=== PATIENT | male | born 1935 | race Caucasian/White ===

== ENCOUNTER → 2018-10-07 | Outpatient (CLI) | payer OTHER | END | disposition home or self-care (01) | LOC: NUCLEAR 13:46 | DX: I82.409 Acute embolism and thrombosis of unspecified deep veins of unspecified lower extremity (principal) ==

== ENCOUNTER 2018-10-14 14:13 | Outpatient (CLI) | payer OTHER | END 2018-10-14 14:15 | disposition home or self-care (01) | LOC: SONOGRAMA 14:13 | DX: R22.41 Localized swelling, mass and lump, right lower limb (principal) ==